=== PATIENT | male | born 1995 | race Caucasian/White ===

== ENCOUNTER 2020-11-24 18:06 | Emergency (ER) | payer OTHER ==
[~2020-11-24] VITALS: Ht 180.3 cm; Wt 95.4 kg
[2020-11-24 19:46] VITALS: BP 149/85
== END 2020-11-24 19:48 | disposition home or self-care (01) ==
LOC: M ED 18:06
DX: F43.0 Acute stress reaction (principal); F33.9 Major depressive disorder, recurrent, unspecified; F41.9 Anxiety disorder, unspecified